=== PATIENT | male | born 1940 | race Caucasian/White ===

== ENCOUNTER 2016-07-09 16:02 | Inpatient (IN) | payer MEDICARE ==
[2016-07-09] VITALS (7 sets, daily range): BP systolic 136–161; BP diastolic 67–95; PULSE 66–85; RESP 17–30; O2SAT 96–97
[~2016-07-09] VITALS: Ht 177.8 cm; Wt 101.6 kg
[~2016-07-09 16:02] MED LIST: ACET-171 PO; ALBU8.5H2 INH; AMAN100T PO; ATOR40TA69 PO; CHOL200047 PO; IBUP200C PO; LOV100 SUBQ; METO25TA6 PO; MULT-1018 PO; OMEP20CA11 PO; SERT50TA9 PO; TAMS0.4C29 PO; Warfarin per Pharmacist PO
--- NOTE | 2016-07-09 16:33 | ED.REPORT ---
HPI-Dyspnea / Wheezing Date of Service Jul 09, 2016 ED Provider: Doc,Ed MD History of Present Illness: wheezing ongoing worse the last few days uses proair inhaler used about 1 hour ago, not much help. denies cold. ajith is primary care, no o2 at home , no home nebulizer. Nursing Notes Stated Complaint: SHORT OF BREATH Chief Complaint: Respiratory Distress Nursing Notes Reviewed: Yes Allergies: Coded Allergies: lisinopril (Verified Allergy, Unknown, UNKNOWN, 02/18/16) acetaminophen (Verified Adverse Reaction, Severe, N&V, 02/18/16) citalopram (Verified Adverse Reaction, Severe, serotonin syndrome, 02/08/16 ) cyclobenzaprine (Verified Adverse Reaction, Severe, seritonin syndrome, ) donepezil (Verified Adverse Reaction, Severe, NIGHTMARES, 02/18/16) hydrocodone (Verified Adverse Reaction, Severe, N&V, 02/18/16) Scheduled ([Warfarin per Pharmacist]) 1 EA EA 5 MG PO DAILY@17 Amantadine (Amantadine) 100 Mg Tablet 100 MG PO BID Atorvastatin Calcium (Atorvastatin Calcium) 40 Mg Tablet 40 MG PO HS Cholecalciferol (Vitamin D3) (Vitamin D3) 2,000 Unit Capsule 2,000 UNIT PO DAILY Enoxaparin (Lovenox) 100 Mg/Ml Syringe 100 MG SUBQ Q12 Metoprolol Tartrate (Metoprolol Tartrate) 25 Mg Tablet 25 MG PO BID Multivitamin (Multi Vitamin Daily) 1 Each Tablet 1 EACH PO DAILY Omeprazole (Omeprazole) 20 Mg Capsule.dr 20 MG PO DAILY Sertraline HCl (Sertraline) 50 Mg Tablet 50 MG PO DAILY Tamsulosin ER (Tamsulosin ER) 0.4 Mg Cap.er.24h 0.4 MG PO HS Scheduled PRN Acetaminophen (Acetaminophen) 500 Mg Tablet 1,000 MG PO Q6H PRN PRN For Pain Albuterol HFA (Proair HFA) 8.5 Gm Hfa.aer.ad 2 PUFFS INH Q4H PRN PRN For Shortness of Breath Ibuprofen (Ibuprofen) 200 Mg Capsule 200 MG PO QID PRN PRN For Pain General Time Seen by MD: 16:32 Chief Complaint Shortness of breath, Wheezing Hx Obtained From: Patient Sudden in Onset?: No Past Medical History Past Medical History 1. osteoporosis 2. Paraesophageal hiatal hernia, chronic, stable 3. History of severe esophagitis, ulcers, chronic stable 4. Diabetes mellitus, chronic stable 5. Dementia, chronic, stable 6. Depression, chronic, stable 7. BPH, chronic, stable 8. Hyperlipidemia, chronic. Stable 9. HTN, chronic, stable History of sleep apnea, on CPAP History of pulmonary embolism Reports: COPD, Cancer, Diabetes mellitus, GERD, Hyperlipidemia, Hypertension Past Surgical History IVC filter, hernial repair, sinus sugery Vasectomy Reports: Appendectomy Smoking History Former Smoker Social History Alcohol Use: Denies alcohol use Drug Use: Denies drug use Other Social History: Good social support, , Local resident Occupation lives with 07/09/2016 Review of Systems Basic Review of Systems Eyes: Vision NL, No discharge Hematologic: No bleeding, No bruising Neurologic: NL mental status, No weakness, No numbness Physical Exam Initial Vital Signs Vital Signs (First) Date Time Temp Pulse Resp B/P Pulse Ox O2 Delivery O2 Flow Rate FiO2 07/09/16 16:03 36 66 30 150/87 97 Room Air Initial VS: Reviewed, Vital signs abnormal Head / Eyes: Atraumatic, Normocephalic, PERRL ENT: Mucous membranes moist, Conjunctiva normal, No scleral icterus Abdomen / GI: Soft, Non-tender, No guarding, No rebound, No distention Back: No CVA tenderness Lymphatic: No lymphadenopathy Extremities: Vascular intact, Neuro intact, No swelling, No tenderness Skin: Warm, Dry, No cyanosis Neurologic: Alert, Oriented, Nonfocal Psychiatric: Mood/affect normal, Behavior normal, Normal thought content General/Constitutional: Awake, Alert Distress / Hydration: Positive: Distress mild Neck: Atraumatic, Supple, No meningismus Respiratory / Chest: Atraumatic Diminished Breath Sounds: Positive: Decreased L, Decreased R Wheezing / Retractions: Positive: Wheeze insp/exp diffuse respiratory rate increased, while patient provides hx o2 drop to 86 -88 %. Increased to 97% when he stops talking Cardiovascular: Heart rate NL, Regular rhythm, Heart sounds NL, No gallop Abdomen: Atraumatic, Soft, Non-tender Interpretation & Diagnostics Lab Results Interpretation Result Diagram: 07/09/16 1735 07/09/16 1735 Test 07/09/16 17:35 White Blood Count 5.0th/mm3 (3.8-10.1) Red Blood Count 4.73mil/mm3 (4.40-5.80) Hemoglobin 10.0g/dL (13.8-17.2) Hematocrit 33.8% (41.0-50.0) Mean Corpuscular Volume 71.5fL (81-100) Mean Corpuscular Hemoglobin 21.1pg (27.0-35.0) Mean Corpuscular Hemoglobin Concent 29.6% (32.0-37.0) Red Cell Distribution Width 21.0% (12.3-15.4) Platelet Count 304bil/L (150-400) Neutrophils (%) (Auto) 39.7% (40-74) Lymphocytes (%) (Auto) 29.1% (14-46) Monocytes (%) (Auto) 14.5% (4-12) Eosinophils (%) (Auto) 15.3% (0-5) Basophils (%) (Auto) 1.2% (0-3) Prothrombin Time 26.2sec (8.1-12.5) Prothromb Time International Ratio 2.41ratio Sodium Level 138mEq/L (134-144) Potassium Level 4.5mEq/L (3.5-5.2) Chloride Level 101mEq/L (97-108) Carbon Dioxide Level 27mmol/L (18-29) Blood Urea Nitrogen 17mg/dL (8-27) Creatinine 0.92mg/dL (0.76-1.27) Estimat Glomerular Filtration Rate 85mL/min (>59) Glucose Level 117mg/dL (60-99) Lactic Acid Level 1.1mmol/L (0.4-2.0) Calcium Level 9.1mg/dL (8.5-10.1) Total Bilirubin 0.2mg/dL (0.0-1.2) Aspartate Amino Transf (AST/SGOT) 14U/L (0-50) Alanine Aminotransferase (ALT/SGPT) 18U/L (0-44) Alkaline Phosphatase 87U/L (25-160) Total Protein 7.7g/dL (6.4-8.4) Albumin 3.9g/dL (3.4-5.0) Hold Campbell Top Tube Received (Received) X-Ray Chest Interpretation Chest Xray Interpretation: INDICATIONS: wheezing TECHNIQUE: 2 views of the chest were acquired. COMPARISON: None. FINDINGS: Surgical changes and devices: None. Lungs and pleura: No pleural effusions or pneumothorax. Lungs are abnormal with reduced inspiration and bibasilar alveolar infiltration best seen behind the heart, to the degree that mild or early pneumonia could be superimposed. Mediastinum: Mediastinal contours are normal. Heart size is mildly enlarged. Bones and chest wall: No suspicious bony abnormalities. Soft tissues appear unremarkable. IMPRESSION: Reduced inspiratory volume bilaterally, mild cardiomegaly, bibasilar retrocardiac lung base alveolar consolidation representing either pneumonia or atelectasis. Re-Eval/Medical Decision Med Decision/Clinical Course 75 year old male presnets with SOB. Audible wheezing noted, Provided 60 mg prednisone and 2 rounds of duo neb with no improvement. Chest x-ray indicates pneumonia. Exam indicates wheezing, no sign of CHF or pneumothorax. Patient does not desire admission. Discussed with Dr. Cazares, speaks with patient and , agree to admission Discharge & Departure Impression: Primary Impression: Bilateral pneumonia Additional Impression: Wheezing Disposition: ADMITTED TO HOSPITAL Referrals: lD Bo MD (PCP) EDSupervising Provider for APC: Navarro Cazares DO copies to: Dl Bo MD, Sue ARNP Jul 09, 2016 16:33
[2016-07-09] MEDS ORDERED: Pantoprazole 40 mg ER24 Tablet PO ONE (16:45)
[2016-07-09] MEDS ORDERED: Albuterol-Ipratropium 3 mL Inhalation Solution NEB ONE ×2 (16:45→18:00)
[2016-07-09] MEDS ORDERED: predniSONE 20 mg Tablet PO ONE (16:45)
--- NOTE | 2016-07-09 17:23 | DRSVH ---
PROCEDURE: X-RAY CHEST, TWO VIEWS ([id number]) INDICATIONS: wheezing TECHNIQUE: 2 views of the chest were acquired. COMPARISON: None. FINDINGS: Surgical changes and devices: None. Lungs and pleura: No pleural effusions or pneumothorax. Lungs are abnormal with reduced inspiration and bibasilar alveolar infiltration best seen behind the heart, to the degree that mild or early pne umonia could be superimposed. Mediastinum: Mediastinal contours are normal. Heart size is mildly enlarged. Bones and chest wall: No suspicious bony abnormalities. Soft tissues appear unremarkable. IMPRESSION: Reduced inspiratory volume bilaterally, mild cardiomegaly, bibasilar retrocardiac lung b ase alveolar consolidation representing either pneumonia or atelectasis. Dictated by: Dell Adames M.D. on 07/09/2016 at 17:21 Approved by: Dell Adames M.D. on 07/09/2016 at 17:22
[2016-07-09 17:57] LABS: BASOPHILS % (AUTO) 1.2 % (0-3); EOSINOPHILS % (AUTO) 15.3 % (0-5); MONOCYTES % (AUTO) 14.5 % (4-12); Mean Corpuscular Hemoglobin 21.1 pg (27.0-35.0); Mean Corpuscular Volume 71.5 fL (81-100); NEUTROPHILS % (AUTO) 39.7 % (40-74); Platelet Count 304 bil/L (150-400)
[2016-07-09 18:07] LABS: INR 2.41 ratio
[2016-07-09] MEDS ORDERED: Azithromycin Inj 500 MG in Dextrose 5% w/Vial Mate 250 ML IV ONE (19:15)
[2016-07-09] MEDS ORDERED: cefTRIAXone Inj 2,000 MG in Dextrose 5% Minibag Plus 50 ML IV ONE (19:15)
[2016-07-09] MEDS ORDERED: Ondansetron 2 mg/mL 2 mL Inj IVPUSH PRN (20:50)
[2016-07-09] MEDS ORDERED: Alum-Mag Hydrox-Simeth 30 mL Suspension PO PRN ×2 (20:50→22:20)
[2016-07-09 20:56] LABS: APPEARANCE,URINE CLEAR (CLEAR,HAZY); COLOR,URINE YELLOW (YELLOW); OCCULT BLOOD,URINE NEGATIVE (NEGATIVE); UROBILINOGEN,URINE NORMAL (NORMAL)
[2016-07-09] MEDS ORDERED: Polyethylene Glycol (PEG) 17 Gm Powder PO PRN (22:20)
[2016-07-09] MEDS: 0.9% Sodium Chloride 1,000 ML IV SCH (22:37)
--- NOTE | 2016-07-09 22:44 | PCM.HPMED ---
Subjective Date of Service Jul 09, 2016 Primary Provider: Admitting Physician: Chriss Fatima MD Primary Care Physician: Dl Bo MD Attending Physician: Chriss Fatima MD Admit Status: From the Emergency Department Chief Complaint: 2 days of increasingly severe shortness of breath along with wheezing. History of Present Illness: He has noted on chest x-ray to have bilateral infiltrates and in the emergency department on presentation was breathing 28-30 times per minute with room air hypoxia down to 86% whenever he moved or talked. He is not the best historian so there may be more in the history that he can recall but there has been no reported fevers, coughing, chills, sweats, chest pain. He has a history of pulmonary embolus but his INR today is therapeutic. His hemoglobin is in the mild anemia range but is better than it was during his last admission. Review of Systems: Positive for wheezing and shortness of breath. Positive for memory loss. Negative for coughing, chest pain, abdominal pain, nausea, vomiting, dysuria, bleeding, rash, seizures, hearing loss, new allergies, joint pain. Allergies Coded Allergies: sertraline (Verified Allergy, Severe, 07/09/16) Serotonin Syndrome lisinopril (Verified Allergy, Unknown, UNKNOWN, 02/18/16) citalopram (Verified Adverse Reaction, Severe, serotonin syndrome, 02/08/16 ) cyclobenzaprine (Verified Adverse Reaction, Severe, seritonin syndrome, ) donepezil (Verified Adverse Reaction, Severe, NIGHTMARES, 02/18/16) hydrocodone (Verified Adverse Reaction, Severe, N&V, 02/18/16) Home Medications Scheduled ([Warfarin per Pharmacist]) 1 EA EA 5 MG PO DAILY@17 Amantadine (Amantadine) 100 Mg Tablet 100 MG PO BID Atorvastatin Calcium (Atorvastatin Calcium) 40 Mg Tablet 40 MG PO HS Cholecalciferol (Vitamin D3) (Vitamin D3) 2,000 Unit Capsule 2,000 UNIT PO DAILY Enoxaparin (Lovenox) 100 Mg/Ml Syringe 100 MG SUBQ Q12 Metoprolol Tartrate (Metoprolol Tartrate) 25 Mg Tablet 25 MG PO BID Multivitamin (Multi Vitamin Daily) 1 Each Tablet 1 EACH PO DAILY Omeprazole (Omeprazole) 20 Mg Capsule.dr 20 MG PO DAILY Sertraline HCl (Sertraline) 50 Mg Tablet 50 MG PO DAILY Tamsulosin ER (Tamsulosin ER) 0.4 Mg Cap.er.24h 0.4 MG PO HS Scheduled PRN Acetaminophen (Acetaminophen) 500 Mg Tablet 1,000 MG PO Q6H PRN PRN For Pain Albuterol HFA (Proair HFA) 8.5 Gm Hfa.aer.ad 2 PUFFS INH Q4H PRN PRN For Shortness of Breath Ibuprofen (Ibuprofen) 200 Mg Capsule 200 MG PO QID PRN PRN For Pain PMH PMH 1. osteoporosis 2. Paraesophageal hiatal hernia, chronic, stable 3. History of severe esophagitis, ulcers, chronic stable 4. Diabetes mellitus, chronic stable 5. Dementia, chronic, stable 6. Depression, chronic, stable 7. BPH, chronic, stable 8. Hyperlipidemia, chronic. Stable 9. HTN, chronic, stable 10. Recurrent pulmonary embolus History of sleep apnea, on CPAP Reports: Cancer, Diabetes mellitus, GERD, Hyperlipidemia, Hypertension Surgical History Past Surgical History IVC filter, hernial repair, sinus sugery Vasectomy Reports: Appendectomy Family History Family History No famhx of colorectal cancer or inflammatory bowel disease Mother with Diabetes Social History Hx Alcohol Use: Yes (Rare) Hx Substance Use: No Hx Tobacco Use: Yes Smoking Status: Former Smoker Living Arrangement: with Family Exam Vital Signs Vital Sign - Last Date Time Temp Pulse Resp B/P Pulse Ox O2 Delivery O2 Flow Rate FiO2 07/09/16 21:04 36.9 81 24 161/95 97 Room Air Exam Alert and oriented 3. He does not appear to definitely recognize me but responds appropriately when I greet him with familiarity. No apparent distress. His family are not with him during my interview, which is unusual. Pupils are equally round and reactive to light and accommodation. Extraocular muscles are intact. Sclera are pink and nonicteric. Throat looks normal. No lymph nodes are felt head, neck, supraclavicular area. JVD is less than 6 cm No carotid bruits are heard There is no thyromegaly Heart is regular rate and rhythm without murmur Lungs have left basilar crackles and diffuse wheezing bilaterally Abdomen is soft, nontender, no organomegaly or masses. Skin has no rash or jaundice Extremities have no ankle edema Neuro exam. Cranial nerves II through XII tested intact. There is no tremor. Motor function appears to be intact 5 out of 5. His dementia/typical question responses are noted but he is oriented. Lab and Diagnostics Result Diagram: 07/09/16173407/09/16 173 X-Rays, CTs and MRIs X-RAY CHEST, TWO VIEWS ([id number]) INDICATIONS: wheezing TECHNIQUE: 2 views of the chest were acquired. COMPARISON: None. FINDINGS: Surgical changes and devices: None. Lungs and pleura: No pleural effusions or pneumothorax. Lungs are abnormal with reduced inspiration and bibasilar alveolar infiltration best seen behind the heart, to the degree that mild or early pneumonia could be superimposed. Mediastinum: Mediastinal contours are normal. Heart size is mildly enlarged. Bones and chest wall: No suspicious bony abnormalities. Soft tissues appear unremarkable. IMPRESSION: Reduced inspiratory volume bilaterally, mild cardiomegaly, bibasilar retrocardiac lung base alveolar consolidation representing either pneumonia or atelectasis. Dictated by: Dell Adames M.D. Assessment & Plan 1 - Bilateral Pneumonia -Continue azithromycin and ceftriaxone IV started in the emergency department tonight. -Use oxygen to maintain O2 saturation above 90% 2 - COPD Exacerbation -Continue prednisone 20 mg twice a day and beta agonist therapy as needed. 3 - Vascular Dementia -Continue amantadine, apparently quite effective for his brain damage dementia. 4 - Depression -Continue sertraline 5 - BPH -Continue Flomax 6 - GERD -Continue omeprazole 7 - Hypertension -Continue metipranolol 8 - Recurrent PE -Holding Coumadin and rechecking INR tomorrow. Expecting his azithromycin to cause the INR to rise -I believe the medication list is incorrect when it also lists therapeutic dosing of Lovenox. 9 - Hyperlipidemia -Continue atorvastatin. Chriss Hargrove MD, MD Jul 09, 2016 22:28
--- NOTE | 2016-07-09 22:55 | PCM.PHAPRO ---
Progress Date of Service: Jul 09, 2016 2 days of increasingly severe shortness of breath along with wheezing. Dx: PE PMH: DM, osteoporosis, dementia, depression, BPH, HTN, hyperlipidemia BRAND ADVISOR dose: 5mg daily DDI: ceftriaxone, azithromycin, ibuprofen, prednisone INR goal 2-3 INR 2.41 (at goal) hold coumadin due to expected azithromycin interaction per Dr Fatima draw next INR AM labs on 07/10 per pharmacy Jerson Alicia PharmD Jerson Alicia Jul 09, 2016 22:55
--- NOTE | 2016-07-09 23:45 | NUR ---
Admit Admitted pt from ED to [facility]. Pt arrived with audible wheezes but is on RA and saturating around 92%. VSS and has been afebrile. Pt denies chest pain, complains of very mild sob but states that it's getting better. Pt denies n/v or abd discomfort. IVF and ABx continued on the floor. Pt's states that pt have a severe allergic reaction to Sertraline and Flexeril, that they believe what the their PCP said is "Serotonin Syndrome". Med Rec done based on pt's med list with . Continuing to monitor.
[2016-07-10] VITALS (11 sets, daily range): BP systolic 120–157; BP diastolic 66–92; PULSE 68–104; RESP 20–24; O2SAT 91–96
--- NOTE | 2016-07-10 02:16 | NUR ---
AMS Pt had an episode of altered mental status around 0130am. Pt seems to be confused and agitated and has been wanting to go home. When asked where he is pt states "I don't care". Pt has calmed down after frequent re-orientation. Will continue to monitor.
[2016-07-10 06:03] LABS: BASOPHILS % (AUTO) 0.2 % (0-3); EOSINOPHILS % (AUTO) 0.2 % (0-5); MONOCYTES % (AUTO) 1.1 % (4-12); Mean Corpuscular Hemoglobin 21.1 pg (27.0-35.0); Mean Corpuscular Volume 71.1 fL (81-100); NEUTROPHILS % (AUTO) 85.2 % (40-74); Platelet Count 308 bil/L (150-400)
[2016-07-10 06:18] LABS: INR 2.33 ratio
--- NOTE | 2016-07-10 06:51 | PCM.PHAPRO ---
Progress 2 days of increasingly severe shortness of breath along with wheezing. Date Jul 10 INR 2.41 2.33 INR change -0.08 Warf Dose hold per Wili Bravo Jul 10, 2016 06:51
[2016-07-10] MEDS ORDERED: cefTRIAXone Inj 1,000 MG in Dextrose 5% Minibag Plus 50 ML IV SCH (08:00)
[2016-07-10] MEDS ORDERED: predniSONE 20 mg Tablet PO SCH (08:30)
[2016-07-10] MEDS ORDERED: Azithromycin Inj 500 MG in Dextrose 5% w/Vial Mate 250 ML IV SCH (08:30)
[2016-07-10] MEDS: Pantoprazole 40 mg ER24 Tablet PO SCH (09:21)
[2016-07-10] MEDS: 0.9% Sodium Chloride 1,000 ML IV SCH (09:22)
--- NOTE | 2016-07-10 11:50 | NUR ---
Evaluation completed. Please go to "Notes" then click on "Assessments and Notes" (bottom left corner of screen). Then select appropriate discipline tab on top of screen.
--- NOTE | 2016-07-10 16:18 | NUR ---
Social Work-initial assessment/ readiness for discharge: Data:See initial assessment. Pt is a 73 y/o male who was admitted on 07/09/16 for pneumonia per H&P. Pt's insurance is [facility] and PCP is Eddie Fonseca. EMR reviewed. Pt's readmission score is 5-high. SW met with pt and at bedside to discuss discharge planning, SW role explained. Pt is alert and oriented x3. Pt resides at home with his where he remains independent with ADLS. Pt uses a fww or cane at home and does not drive. Pt has history with HH and SNF. Pt has no [facility] care or [facility] benefits. SW discussed DPOA/ advance directive, pt has completed this, SW encouraged a copy to be brought in. PT worked with pt and recommended home with HH. SW discussed with pt and , HH choice list provided. Pt and have history with [facility] and would like referral. SW made referral to [facility] with [facility] for RN and PT, access given. SW provided phone number and plan on white board in room. Pt's to provide transport home. F2F in folder. SW will continue to follow. Assessment:Pt who would benefit from HH. Plan:Pt to discharge home with when medically stable via POV. Referral made to [facility] for RN and PT. F2F in folder. SW will continue to follow. ROBINSON Lou Addendum: 07/10/16 at 1622 by MORRIS GUTIERREZ SS Amended: Links added.
--- NOTE | 2016-07-10 16:24 | NUR ---
choice list provided. ROBINSON Lou
[2016-07-10] MEDS ORDERED: predniSONE 20 mg Tablet PO ONE (16:50)
--- NOTE | 2016-07-10 16:58 | PCM.PNMED ---
Subjective Date of Service Jul 10, 2016 Subjective Maximo Maurer is a 75-year-old male with a past medical history significant for hyperlipidemia, hypertension, dementia and pulmonary embolism anticoagulated on warfarin who presented to [facility] emergency Department due to shortness of breath who was admitted for bilateral community- acquired pneumonia and COPD exacerbation. Hospital day #2. Overnight: The patient was confused otherwise there were no acute events. Telemetry overnight was sinus rhythm, heart rate 60 to 90, short runs of sinus tachycardia up to the 140s with activity otherwise no other ectopy. The patient is resting in bedside chair comfortably and in no acute distress. He denies headache, rhinitis, sore throat, cough, shortness of breath, chest pain, abdominal pain, nausea, vomiting, fever, chills, dysuria, diarrhea or constipation. He is voiding without difficulty. He has yet to have a bowel movement but feels as though he may shortly. He is up ambulating with assistance. . Exam Vital Signs Vital Sign - Last Date Time Temp Pulse Resp B/P Pulse Ox O2 Delivery O2 Flow Rate FiO2 07/10/16 14:28 36.8 87 20 148/85 96 Room Air Intake and Output 07/09/16 07/09/16 07/10/16 Cumulative From/Thru 15:00 23:00 07:00 07/09/16 16:03 - 07/10/16 06:26 Intake Total 0 ml 0 ml Output Total 500 ml 500 ml Balance -500 ml -500 ml Intake Oral 0 ml 0 ml Output Urine Total 500 ml 500 ml Exam General: Elderly gentleman sitting in bedside chair and in no acute distress, well-developed, well-nourished, appropriately interactive HEENT: Normocephalic, atraumatic. External ears without defect. Pupils equal, round, and reactive to light. Anicteric sclerae, moist conjunctivae, and no lid lag. Oropharynx free of erythema and cobble stoning with moist mucosa. Supplemental oxygen in place Neck: Supple with full range of motion. No jugular venous distension. No bruits. No lymphadenopathy or thyromegaly. Cardiovascular: Regular rate and rhythm with no murmurs, rubs, or gallops appreciated Pulmonary: Clear to auscultation bilaterally without crackles or rhonchi. Rare expiratory wheeze. Normal respiratory effort with no use of accessory muscles. Abdomen: Soft, nontender, nondistended, bowel sounds present. No hepatosplenomegaly or masses appreciated. Extremities: No clubbing, cyanosis, or edema. Skin: Normal temperature, turgor, and texture; no rash, ulcers, or subcutaneous nodules appreciated. Neurological: Cranial nerves grossly intact. Normal muscle strength, tone, and bulk. Reflexes, coordination, and sensory function within normal limits. No known gait impairment. Psychiatric: Normal mood and affect. Alert and oriented to person, place, and time. . IVs and Medications Medications Reviewed: Medications were reviewed in detail Lab and Diagnostics Item Value Date Time Lactic Acid Level 1.1 mmol/L 07/09/161734 Calcium Level 8.9 mg/dL 07/10/16 06 Result Diagram: 07/10/1651507/10/16599 Microbiology Blood cultures 2 pending. Strep pneumonia and legionella urine antigens pending. Respiratory viral PCR pending. . X-Rays, CTs and MRIs X-RAY CHEST, TWO VIEWS IMPRESSION: Reduced inspiratory volume bilaterally, mild cardiomegaly, bibasilar retrocardiac lung base alveolar consolidation representing either pneumonia or atelectasis. Dictated by: Dell Adames M.D. . Assessment & Plan Maximo Maurer is a 75-year-old male with a past medical history significant for hyperlipidemia, hypertension, dementia and pulmonary embolism anticoagulated on warfarin who presented to [facility] emergency Department due to shortness of breath who was admitted for bilateral community- acquired pneumonia and COPD exacerbation. Hospital day #2. 1. Acute hypoxemic respiratory failure, present on admission. Resolved. - Patient presented with hypoxemia oxygen sats mid 80's with activity and complaints of dyspnea and tachypneic on admission in a patient who has history of COPD. - Secondary to bilateral community acquired pneumonia and COPD exacerbation. - Continue supplemental oxygen as needed. 2. Bilateral community-acquired pneumonia, present on admission. Active. - Chest x-ray revealed reduced inspiratory volume bilaterally, mild cardiomegaly , bibasilar retrocardiac lung base alveolar consolidation representing either pneumonia or atelectasis, as above. - Discontinued azithromycin and ceftriaxone. Started levofloxacin 750 mg daily. - Supplemental oxygen as needed to keep oxygen saturation 88-92%. - Discontinued IV fluids and encourage by mouth intake. - Ordered strep pneumoniae and legionella urine antigens, pending. - Ordered pro-calcitonin, pending. - Ordered respiratory viral PCR, pending. 3. Acute COPD exacerbation, present on admission. Active. - Continue prednisone 40 mg daily. - Continue albuterol nebs every 4 hours as needed for shortness of breath. 4. Vascular dementia, chronic. Stable. - Continue amantadine 100 mg twice a day. 5. Depression, chronic. Stable. - Continue sertraline 50 mg daily. 6. BPH, chronic. Stable. - Continue tamsulosin ER 0.4 mg daily at bedtime. 7. GERD, chronic. Stable. - Continue Protonix 40 mg daily. 8. Hypertension, chronic. Stable. - Continue metoprolol tartrate 25 mg twice a day. 9. History of recurrent PE, chronic. Presumed stable. - INR therapeutic at 2.44 on admission. - Continue warfarin with dosing per pharmacist. - If patient were to acutely decompensate would consider starting heparin gtt PE protocol and obtaining an emergent CTA. 10. Hyperlipidemia, chronic. Stable. - Continue atorvastatin 40 mg daily at bedtime. PRN antiemetics: Zofran and Maalox. PRN bowel regimen: Senna and MiraLAX. PRN analgesics: Tylenol. Disposition: Patient likely discharge in the 1-2 days depending upon clinical course. . VTE Prophylaxis: Other (warfarin) Resuscitation Status: CPR: Attempt Resuscitation Attending Statement The patient was seen and examined together with Dr. Mcmanus on 07/10/2016 and I agree with the history, exam and plan as outlined in the note above. Naa Mcmanus DO Jul 10, 2016 16:58 Jayden Arnold MD Jul 11, 2016 09:46
[2016-07-10] MEDS: Albuterol 2.5 mg/3 mL Inhalation Solution NEB PRN ×2 (18:07→21:47)
[2016-07-11 00:20] VITALS: BP 147/86; PULSE 76; RESP 20; O2SAT 95
[2016-07-11 03:57] VITALS: BP 162/95; PULSE 74; RESP 22; O2SAT 94
--- NOTE | 2016-07-11 05:31 | NUR ---
Confusion: Pt woke this cooper apprentice confused, not knowing where he was. He did ambulate in the mandujano with , then was upset with , per conversation with her. Pt sat up in the chair for a while, not wanting to go back to the bed. Eventually, pt did lie down and is again sleeping at this time. Pt does have audible wheezes when up, at rest, breathing is quieter.
[2016-07-11 06:27] LABS: BASOPHILS % (AUTO) 0 % (0-3); EOSINOPHILS % (AUTO) 0 % (0-5); MONOCYTES % (AUTO) 9.5 % (4-12); Mean Corpuscular Volume 71.3 fL (81-100); NEUTROPHILS % (AUTO) 74.7 % (40-74); Platelet Count 347 bil/L (150-400)
[2016-07-11 07:11] LABS: INR 2.08 ratio
[2016-07-11] MEDS ORDERED: levoFLOXacin 500 mg Tablet PO SCH ×2 (07:30)
[2016-07-11 08:02] VITALS: PULSE 79; RESP 20; O2SAT 92
[2016-07-11] MEDS: Albuterol 2.5 mg/3 mL Inhalation Solution NEB PRN (08:02)
--- NOTE | 2016-07-11 08:03 | PCM.PHAPRO ---
Progress Date of Service: Jul 11, 2016 2 days of increasingly severe shortness of breath along with wheezing. INR = 2.08. Hgb/hct = 9.7/33, plts 347. Pt continues on warfarin therapy for history of PE. INR therapeutic, goal 2-3. Possible DI with levofloxacin. Will give warfarin 5mg PO today. INR ordered. Pharmacy will continue to follow this pt's warfarin therapy. Carline Rodarte S PharmD Jul 11, 2016 08:03
[2016-07-11] MEDS ORDERED: predniSONE 20 mg Tablet PO SCH (08:30)
[2016-07-11] MEDS: Pantoprazole 40 mg ER24 Tablet PO SCH (08:33)
[2016-07-11 09:21] VITALS: BP 147/84; PULSE 79; RESP 20; O2SAT 93
--- NOTE | 2016-07-11 10:20 | NUR ---
Assessment timing Pt assessments done at 0730 this am and charted at 0955 but not timed properly for 0730. Pt is discharging soon so I will not have time to do charting over to reflect proper time. Care continues
[2016-07-11 10:37] VITALS: PULSE 82
--- NOTE | 2016-07-11 10:55 | PCM.DIMED ---
Malinda Crook DO 07/11/16 1055: Discharge Instructions Date of Service Jul 11, 2016 Dates of Hospitalization Jul 09, 2016 at 20:04 Discharge Diagnosis Discharge Diagnosis 1. Acute hypoxemic respiratory failure, present on admission. Resolved. 2. Bilateral community-acquired pneumonia, present on admission. Resolving. 3. Acute COPD exacerbation, present on admission. Resolving. 4. Vascular dementia, chronic. Stable. 5. Depression, chronic. Stable. 6. BPH, chronic. Stable. 7. GERD, chronic. Stable. 8. Hypertension, chronic. Stable. 9. History of recurrent PE, chronic. Presumed stable. 10. Hyperlipidemia, chronic. Stable. Medication Instructions Continue Azithromycin, 500 mg x 3 days Continue Prednisone, 40 mg x 3 days Diet Heart Healthy Activity No restrictions Call your provider Fever or Chills, Shortness of breath, Bleeding, Chest pain, Vomitting, Excessive diarrhea, Weakness (unilateral) Patient Instructions Follow-up Provider: Dl Bo MD Follow-up with PCP in: 2 weeks Lou Chamberlain DO 07/13/16 1343: Discharge Instructions Attending's Statement The patient was seen and examined together with Dr. Crook on 07/11/16nd I agree with the history, exam and plan as outlined in the note above. Malinda Crook DO Jul 11, 2016 10:55 Lou Chamberlain DO Jul 13, 2016 13:43
[2016-07-11] MEDS ORDERED: AZIT500T5 PO (10:59)
[2016-07-11] MEDS ORDERED: PRE20 PO (11:00)
--- NOTE | 2016-07-11 11:15 | PCM.DC.MED ---
Discharge Summary Date of Service Jul 11, 2016 Dates of Hospitalization Date of Hospital Admission Jul 09, 2016 at 20:04 Date of Discharge: Jul 11, 2016 Providers: Admitting Physician: Chriss Fatima MD Primary Care Physician: Dl Bo MD Attending Physician: Chriss Fatima MD Diagnosis at Time of Discharge Diagnosis at Time of Discharge 1. Acute hypoxemic respiratory failure, present on admission. Resolved. 2. Acute COPD exacerbation, present on admission. Resolving. 3. Possible bilateral community-acquired pneumonia, present on admission. 4. Vascular dementia, chronic. Stable. 5. Depression, chronic. Stable. 6. BPH, chronic. Stable. 7. GERD, chronic. Stable. 8. Hypertension, chronic. Stable. 9. History of recurrent PE, chronic. Presumed stable. 10. Hyperlipidemia, chronic. Stable. Procedures XRay, CTs & MRIs X-RAY CHEST, TWO VIEWS IMPRESSION: Reduced inspiratory volume bilaterally, mild cardiomegaly, bibasilar retrocardiac lung base alveolar consolidation representing either pneumonia or atelectasis. Dictated by: Dell Adames M.D. . Brief History Per Admitting Physician: Chriss Fatima MD: Chief complaint: 2 days of increasingly severe shortness of breath along with wheezing. He has noted on chest x-ray to have bilateral infiltrates and in the emergency department on presentation was breathing 28-30 times per minute with room air hypoxia down to 86% whenever he moved or talked. He is not the best historian so there may be more in the history that he can recall but there has been no reported fevers, coughing, chills, sweats, chest pain. He has a history of pulmonary embolus but his INR today is therapeutic. His hemoglobin is in the mild anemia range but is better than it was during his last admission. Hospital Course Maximo Maurer is a 75-year-old male with a past medical history significant for hyperlipidemia, hypertension, dementia and pulmonary embolism anticoagulated on warfarin who presented to [facility] emergency Department due to shortness of breath who was admitted for possible bilateral community-acquired pneumonia and COPD exacerbation. Discharged on hospital day 3. 1. Acute hypoxemic respiratory failure, present on admission. Resolved. - Patient presented with hypoxemia oxygen sats mid 80's with activity and complaints of dyspnea and tachypneic on admission in a patient who has history of COPD. - Secondary to COPD exacerbation. - Continued supplemental oxygen as needed. 2. Acute COPD exacerbation, present on admission. Resolving. - Continued albuterol nebs every 4 hours as needed for shortness of breath. - Discharged on day 3 with Azithromycin, 500 mg PO x 3 days and Prednisone 40 mg daily x 3 days. 3. Possible bilateral community-acquired pneumonia, present on admission. Retrospectively, we do not believe this was investment representative of pneumonia as there were no positive infectious markers and patient had no symptoms other than dyspnea which was likely from COPD exacerbation - Chest x-ray revealed reduced inspiratory volume bilaterally, mild cardiomegaly , bibasilar retrocardiac lung base alveolar consolidation representing either pneumonia or atelectasis, as above. - Discontinued azithromycin and ceftriaxone. Started levofloxacin 750 mg. Patient received one dose. Discontinued. - Supplemental oxygen as needed to keep oxygen saturation 88-92%. - Discontinued IV fluids and encourage by mouth intake. - Strep pneumoniae and legionella urine antigens negative. - Pro-calcitonin 0.04. - Respiratory viral PCR negative. 4. Vascular dementia, chronic. Stable. - Continued amantadine 100 mg twice a day. 5. Depression, chronic. Stable. - Continued sertraline 50 mg daily. 6. BPH, chronic. Stable. - Continued tamsulosin ER 0.4 mg daily at bedtime. 7. GERD, chronic. Stable. - Continued Protonix 40 mg daily. 8. Hypertension, chronic. Stable. - Continued metoprolol tartrate 25 mg twice a day. 9. History of recurrent PE, chronic. Presumed stable. - INR therapeutic at 2.44 on admission, 2.08 on the day of discharge. - Continued warfarin with dosing per pharmacist. 10. Hyperlipidemia, chronic. Stable. - Continued atorvastatin 40 mg daily at bedtime. Exam Vital Signs (Last) Date Time Temp Pulse Resp B/P Pulse Ox O2 Delivery O2 Flow Rate FiO2 07/11/16 10:37 82 07/11/16 09:21 36.6 20 147/84 93 Room Air Exam General: Elderly gentleman sitting in bedside chair and in no acute distress, well-developed, well-nourished, appropriately interactive HEENT: Normocephalic, atraumatic. External ears without defect. Pupils equal, round, and reactive to light. Anicteric sclerae, moist conjunctivae, and no lid lag. Oropharynx free of erythema and cobble stoning with moist mucosa. Neck: Supple with full range of motion. No jugular venous distension. No bruits. No lymphadenopathy or thyromegaly. Cardiovascular: Regular rate and rhythm with no murmurs, rubs, or gallops appreciated Pulmonary: Clear to auscultation bilaterally without crackles or rhonchi. Rare expiratory wheeze on the right. Normal respiratory effort with no use of accessory muscles. Abdomen: Soft, nontender, nondistended, bowel sounds present. No hepatosplenomegaly or masses appreciated. Extremities: No clubbing, cyanosis, or edema. Skin: Normal temperature, turgor, and texture; no rash, ulcers, or subcutaneous nodules appreciated. Neurological: Cranial nerves grossly intact. Normal muscle strength, tone, and bulk. Reflexes, coordination, and sensory function within normal limits. No known gait impairment. Psychiatric: Normal mood and affect. Alert and oriented to person, place, and time. . Test 07/09/16 17:35 07/09/16 20:38 07/10/16 03:40 07/10/16 08:27 Lactic Acid Level 1.1mmol/L (0.4-2.0) Total Bilirubin 0.2mg/dL (0.0-1.2) Aspartate Amino Transf (AST/SGOT) 14U/L (0-50) Alanine Aminotransferase (ALT/SGPT) 18U/L (0-44) Alkaline Phosphatase 87U/L (25-160) Total Protein 7.7g/dL (6.4-8.4) Albumin 3.9g/dL (3.4-5.0) Hold Campbell Top Tube Received (Received) Urine Color Yellow (YELLOW) Urine Appearance Clear (CLEAR,HAZY) Urine pH 6.0 (5.0-8.0) Urine Specific [place] 1.020 (1.003-1.035) Urine Protein Negativemg/dL (NEG,TRACE) Urine Glucose (UA) Negativemg/dL (NEGATIVE) Urine Ketones Negativemg/dL (NEGATIVE) Urine Occult Blood Negative (NEGATIVE) Urine Nitrite Negative (NEGATIVE) Urine Bilirubin Negative (NEGATIVE) Urine Urobilinogen Normalmg/dL (NORMAL) Urine Leukocyte Esterase Negative (NEGATIVE) Urine RBC 0-2/hpf (0-2) Urine WBC 0-5/hpf (0-5) Urine Epithelial Cells Occasional/hpf (NONE-MOD) Urine Crystals None seen (NONE SEEN) Urine Bacteria None/hpf (NONE-FEW) Urine Hyaline Casts None/lpf (NONE) Urine Granular Casts None seen (NONE SEEN) Urine Waxy Casts None seen (NONE SEEN) Urine Red Blood Cell Casts None seen (NONE SEEN) Urine White Blood Cell Casts None seen (NONE SEEN) Urine Mucus None seen (None Seen) Urine Trichomonas None seen (NONE SEEN) Urine Yeast None (NONE SEEN) Urinalysis Comment None Urine Culture Reflexed Not indicated Hold Urine Received (Received) Urine Legionella pneumophilia Ag Negative (Negative) Test 07/11/16 06:08 White Blood Count 6.4th/mm3 (3.8-10.1) Red Blood Count 4.63mil/mm3 (4.40-5.80) Hemoglobin 9.7g/dL (13.8-17.2) Hematocrit 33.0% (41.0-50.0) Mean Corpuscular Volume 71.3fL (81-100) Mean Corpuscular Hemoglobin 21.0pg (27.0-35.0) Mean Corpuscular Hemoglobin Concent 29.4% (32.0-37.0) Red Cell Distribution Width 21.0% (12.3-15.4) Platelet Count 347bil/L (150-400) Neutrophils (%) (Auto) 74.7% (40-74) Lymphocytes (%) (Auto) 15.6% (14-46) Monocytes (%) (Auto) 9.5% (4-12) Eosinophils (%) (Auto) 0% (0-5) Basophils (%) (Auto) 0% (0-3) Prothrombin Time 22.6sec (8.1-12.5) Prothromb Time International Ratio 2.08ratio Sodium Level 139mEq/L (134-144) Potassium Level 4.8mEq/L (3.5-5.2) Chloride Level 104mEq/L (97-108) Carbon Dioxide Level 23mmol/L (18-29) Blood Urea Nitrogen 19mg/dL (8-27) Creatinine 0.88mg/dL (0.76-1.27) Estimat Glomerular Filtration Rate 89mL/min (>59) Glucose Level 146mg/dL (60-99) Calcium Level 8.9mg/dL (8.5-10.1) Procalcitonin 0.04ng/mL (0.00-0.08) Microbiology Results Blood cultures negative. Strep pneumonia and legionella urine antigens negative. Respiratory viral PCR negative. . Discharge Medications Discharge Medications ([Warfarin per Pharmacist]) 1 EA EA 5 MG PO DAILY@17 Prescribed by: ELIESER COX DO Amantadine (Amantadine) 100 Mg Tablet 100 MG PO BID (Reported) Atorvastatin Calcium (Atorvastatin Calcium) 40 Mg Tablet 40 MG PO HS (Reported) Azithromycin (Azithromycin) 500 Mg Tablet 500 MG PO DAILY Prescribed by: SANAZ GUAMAN DO Cholecalciferol (Vitamin D3) (Vitamin D3) 2,000 Unit Capsule 2,000 UNIT PO DAILY (Reported) Enoxaparin (Lovenox) 100 Mg/Ml Syringe 100 MG SUBQ Q12 Prescribed by: ELIESER COX DO Metoprolol Tartrate (Metoprolol Tartrate) 25 Mg Tablet 25 MG PO BID (Reported) Multivitamin (Multi Vitamin Daily) 1 Each Tablet 1 EACH PO DAILY (Reported) Omeprazole (Omeprazole) 20 Mg Capsule.dr 20 MG PO DAILY (Reported) Prednisone (PredniSONE) 20 Mg Tablet 20 MG PO DAILY Prescribed by: SANAZ GUAMAN DO Tamsulosin ER (Tamsulosin ER) 0.4 Mg Cap.er.24h 0.4 MG PO HS (Reported) As needed Acetaminophen (Acetaminophen) 500 Mg Tablet 1,000 MG PO Q6H PRN PRN For Pain ( Reported) Albuterol HFA (Proair HFA) 8.5 Gm Hfa.aer.ad 2 PUFFS INH Q4H PRN PRN For Shortness of Breath (Reported) Ibuprofen (Ibuprofen) 200 Mg Capsule 200 MG PO QID PRN PRN For Pain (Reported) Additional med instructions Continue Azithromycin, 500 mg x 3 days Continue Prednisone, 40 mg x 3 days Followup Plan Discharge Diet: Heart Healthy Discharge Activity: No restrictions Follow-up Provider: Dl Bo MD Follow-up with PCP in: 2 weeks Attending Statement The patient was seen and examined together with Dr. Guaman on 07/11/16 and I agree with the history, exam and plan as outlined in the note above. copies to: Dl Bo MD, Oksana S DO Jul 11, 2016 11:15 Lou Chamberlain DO Jul 13, 2016 13:45 Sanaz Guaman DO Jul 11, 2016 11:15
--- NOTE | 2016-07-11 11:54 | NUR ---
Discharge Reviewed d/c instructions with pt and in room including new prescriptions and care notes, pt signed and given originals, copies to chart. IV d/c intact, tele removed. VS stable at time of d/c. All belongings packed by pt and in room. Pt taken off unit via WC by VANESSA to car where will drive home.
== END 2016-07-11 12:02 | disposition home or self-care (01) | DRG 189 ==
LOC: SED 16:02 → MPC 20:04
PROVIDERS: ADMIT Family Medicine; ATTEND Family Medicine
DX: J96.01 Acute respiratory failure with hypoxia (principal); J18.9 Pneumonia, unspecified organism; J44.1 Chronic obstructive pulmonary disease with (acute) exacerbation; Z79.01 Long term (current) use of anticoagulants; Z87.891 Personal history of nicotine dependence; F01.50 Vascular dementia, unspecified severity, without behavioral disturbance, psychotic disturbance, mood disturbance, and anxiety; F32.9 Major depressive disorder, single episode, unspecified; K21.9 Gastro-esophageal reflux disease without esophagitis; I10 Essential (primary) hypertension; Z86.711 Personal history of pulmonary embolism; E78.5 Hyperlipidemia, unspecified; N40.0 Benign prostatic hyperplasia without lower urinary tract symptoms